=== PATIENT | male | born 1995 | race Caucasian/White ===

== ENCOUNTER 2016-09-05 11:28 | Emergency (ER) | payer OTHER ==
[~2016-09-05] VITALS: Ht 177.8 cm; Wt 85.4 kg
[2016-09-05 11:29] VITALS: Ht 177.8 cm; Wt 85.4 kg
[2016-09-05] MEDS ORDERED: ADAP0.1C5 TOP (12:09)
[2016-09-05] MEDS ORDERED: MINO1CAP25 PO (12:09)
[2016-09-05] MEDS ORDERED: NSP/500 PO (12:09)
[2016-09-05] MEDS ORDERED: CLIN1LOT TOP (12:09)
--- NOTE | 2016-09-05 13:18 | EMERGENCY ROOM VISIT NOTE ---
History First contact with patient: 13:01 Chief Complaint: FLU LIKE SX Stated Complaint: FLU History of Present Illness The patient is a 20 year old male who presents to the Emergency Room with complaints of flulike symptoms. The patient states that one week ago he had one episode of emesis but that has completely resolved. The patient states that 2 days ago he developed chills, subjective fever, cough, sore throat, arthralgias and myalgias. He took Advil this morning. The patient states he also noticed some blood when he gargled with water. He denies any epistaxis. He denies any hemoptysis. He states this only occurred one time and has not occurred again. He denies any pain in his chest or trouble breathing. He denies any pain. He denies any abdominal pain, nausea, vomiting, diarrhea. He does not know of any sick contacts. He denies any neck pain, neck stiffness or neck swelling. Review of Systems A 10 system review of systems was completed with positives and pertinent negatives listed in the HPI. Past Medical/Surgical History Patient denies Social History Smoking Status: Never Smoker Marital Status: single Occupation Status: [employer] student Current/Historical Medications Scheduled Adapalene (Differin), 1 APPLN TOP HS Clindamycin Phosphate (Topical (Cleocin-T), 1 APPLN TOP DAILY Minocycline Hcl (Minocin), 100 MG PO BID Scheduled PRN Niacin (Niaspan Ext Rel), 500 MG PO DAILY PRN for Muscle Spasms Allergies Coded Allergies: No Known Allergies (Unverified , 09/05/16) Physical Exam Vital Signs Date Time Temp Pulse Resp B/P Pulse Ox O2 Delivery O2 Flow Rate FiO2 09/05/16 14:30 37.3 96 20 122/78 98 09/05/16 11:29 37.3 96 20 122/78 98 Room Air Physical Exam VITALS: Vitals are noted on the nurse's note and reviewed by myself. Vital signs stable. The patient is afebrile. GENERAL: This is a 20-year-old male, in no acute distress, nondiaphoretic, well- developed well-nourished. SKIN: The skin was without rashes, erythema, edema, or bruising. There is no tenting of the skin. Capillary reflex less than 2 seconds. HEAD: Normocephalic atraumatic. EARS: External auditory canals clear, tympanic membranes pearly hernandez without erythema or effusion bilaterally. EYES: Pupils equal round and reactive to light and accommodation. Conjunctivae without injection, sclerae without icterus. Extraocular movements intact. NOSE: Patent, turbinates without inflammation or discharge. No sinus tenderness. MOUTH: Mucous membranes moist. Tonsils are not enlarged. There is mild posterior pharyngeal erythema. Uvula midline. Airway patent. Tongue does not deviate. NECK: Supple without nuchal rigidity. No lymphadenopathy. No thyromegaly. Cervical spine is nontender. No JVD. No facial swelling. HEART: Regular rate and rhythm without murmurs gallops or rubs. LUNGS: Clear to auscultation bilaterally without wheezes, rales or rhonchi. No retractions or accessory muscle use. MUSCULOSKELETAL: No muscle atrophy, erythema, or edema noted. Full range of motion in all extremities. Normal gait. Strength 5/5 throughout. NEURO: Patient was alert and oriented to person place and time. No focal neurological deficits. Medical Decision & Procedures ED Course The patient was seen and examined. Previous visits were reviewed. rapid strep was negative. Chest x-ray does not reveal any infiltrate. The patient has had upper respiratory symptoms. He has had arthralgias, myalgias, chills, sinus congestion, cough. I suggested a more thorough evaluation including laboratory studies, influenza. The patient refused. He did agree to the rapid strep and the chest x-ray. The patient likely has a viral illness. He should continue Tylenol and ibuprofen. He should [facility] with [facility] tomorrow or Friday if he is not improving. He should return to the ER if any worsening symptoms. Medical Decision DIFFERENTIAL DIAGNOSIS: Aortic dissection, myocarditis, pericarditis, cervical disc disease, costochondritis, herpes zoster, rib fracture, pleuritis, pneumonia , pulmonary embolus, tension pneumothorax, anxiety disorder, somatoform disorder , choledocholithiasis, status, esophagitis, esophageal spasm, esophageal reflux , esophageal rupture, pancreatitis, peptic ulcer disease, cardiac ischemia, ST elevation [place], acute coronary syndrome, arrhythmia, coronary artery vasospasm. vavular heart disease, coronary artery disease, among others. Impression Primary Impression: Influenza-like symptoms Departure Information Dispostion Home / Self-Care Forms HOME CARE DOCUMENTATION FORM, IMPORTANT VISIT INFORMATION, School Instructions Return To School: 1 day Patient Instructions ED Flu, [facility] Additional Instructions Advil 600mg (3 tabs) every 6-8 hours for pain/fever You may also take tylenol 1 g every 4-6 hours; no more than 4g of tylenol in 24 hours Return with chest pain, trouble breathing, worsening symptoms Otherwise, recheck with [facility] next week if no improvement.
--- NOTE | 2016-09-05 13:43 | DIAGNOSTIC IMAGING REPORT ---
CHEST 2 VIEWS ROUTINE CLINICAL HISTORY: cough, fever COMPARISON STUDY: No previous studies for comparison. FINDINGS: The bones soft tissues and hemidiaphragms are normal. The cardiomediastinal silhouette is normal. The lungs are clear. The pulmonary vasculature is normal. IMPRESSION: Negative chest. Electronically signed by: Wm Robles M.D. 09/05/2016 1:42 PM Dictated Date/Time: 09/05/2016 1:41 PM
[2016-09-05 14:30] VITALS: BP 122/78; PULSE 96; TEMP 37.3; O2SAT 98
== END 2016-09-05 14:31 | disposition home or self-care (01) ==
LOC: C.EDB 11:30
DX: J11.1 Influenza due to unidentified influenza virus with other respiratory manifestations (principal)